=== PATIENT | male | born 1945 | race Caucasian/White ===

== ENCOUNTER 2024-01-21 20:31 | Outpatient (CLI) | payer MEDICARE, OTHER | END 2024-01-21 20:32 | disposition critical access hospital (66) | LOC: EMS 20:31 | DX: S00.81XA Abrasion of other part of head, initial encounter (principal); W18.30XA Fall on same level, unspecified, initial encounter; Y92.092 Bedroom in other non-institutional residence as the place of occurrence of the external cause; Z79.01 Long term (current) use of anticoagulants | CPT/HCPCS: A0425; A0429 ==

== ENCOUNTER 2024-01-21 20:51 | Emergency (ER) | payer MEDICARE, OTHER ==
--- NOTE | 2024-01-21 21:04 | ED Physician Documentation ---
History of Present Illness - Stated complaint Stated Complaint: GLF - Chief complaint Chief Complaint: Trauma Hd/Nk - History obtained from History obtained from: Patient, EMS - Additonal information Additional information: The patient is brought to the emergency department by EMS from home place for chief complaint of head injury. The staff apparently found the patient to have fallen that the patient states he did not really fall entirely. He states he has back pain and sometimes has spasms and that this can sometimes cause him to lose his balance. He states he stumbled but did not really hurt himself and barely grazed his head. He denies any loss of consciousness. He was actually able to get up on his own. He has no complaints and is a DNR/comfort measures. The patient denies any back pain that is new. No neck pain. No neurologic changes. No visual changes. The patient denies any rib pain hip pain or extremity pain. No other complaints at this time. PD PAST MEDICAL HISTORY - Past Medical History Past Medical History: Yes Cardiovascular: Congestive heart failure, Hypertension, Atrial fibrillation Respiratory: Sleep apnea Neuro: Dementia, CVA HEENT: None Musculoskeletal: Other Other Past Medical History: spinal stenosis - Past Surgical History Past Surgical History: Yes - Present Medications Home Medications: Ambulatory Orders Medication Instructions Recorded Confirmed Acetaminophen [Tylenol] 500 mg PO BID 01/21/24 01/21/24 Apixaban [Eliquis] 5 mg PO BID 01/21/24 01/21/24 Bumetanide 2 mg PO DAILY 01/21/24 01/21/24 Levothyroxine [Synthroid] 25 mcg PO QDAC 01/21/24 01/21/24 Naproxen Sodium [Aleve] 220 mg PO BID 01/21/24 01/21/24 Potassium Chloride 20 meq PO BID 01/21/24 01/21/24 QUEtiapine [SEROquel] 25 mg PO TID 01/21/24 01/21/24 Sacubitril/Valsartan [Entresto 24 1 tab PO BID 01/21/24 01/21/24 mg-26 mg Tablet] busPIRone [Buspar] 5 mg PO TID 01/21/24 01/21/24 hydrALAZINE [Apresoline] 25 mg PO TID 01/21/24 01/21/24 hydrOXYzine HCL [Hydroxyzine HCl] 25 mg PO BID 01/21/24 01/21/24 - Allergies Allergies/Adverse Reactions: Allergies Allergy/AdvReac Type Severity Reaction Status Date / Time amlodipine Allergy Unknown Verified 01/21/24 21:01 dexmethylphenidate Allergy Unknown Verified 01/21/24 21:01 iodine Allergy Unknown Verified 01/21/24 21:01 lisinopril Allergy Unknown Verified 01/21/24 21:01 tositumomab Allergy Unknown Verified 01/21/24 21:01 - Social History Does the pt smoke?: No Smoking Status: Never smoker Does the pt drink ETOH?: No Does the pt have substance abuse?: No - Immunizations Immunizations are current?: Yes - POLST Patient has POLST: Yes PD ED PE NORMAL - Vitals Vital signs reviewed: Yes - General General: No acute distress, Well developed/nourished, Other (Alert, conversant, appropriate.) - HEENT HEENT: PERRL, EOMI, Moist mucous membranes, Other (An old abrasion is noted over the left anterior superior scalp but otherwise no contusion, edema, or tenderness, and no other evidence of trauma.) - Cardiac Cardiac: RRR, No murmur - Respiratory Respiratory: Clear bilaterally - Abdomen Abdomen: Normal bowel sounds, Soft, Non tender, Non distended - Derm Derm: Warm and dry - Extremities Extremities: No deformity - Neuro Neuro: Alert and oriented X 3 - Psych Psych: Normal mood, Normal affect Results - Vitals Vitals: Vital Signs - 24 hr 01/21/24 01/21/24 20:54 22:36 Temperature 36.9 C Heart Rate 91 77 Respiratory 15 16 Rate Blood Pressure 130/78 137/71 H O2 Saturation 97 99 Oxygen O2 Source Room air - Rads (name of study) head CT Relevant Findings:: Final report received, See rad report (nad) PD Medical Decision Making - ED course Complexity details: reviewed old records, reviewed results, re-evaluated rick ent, considered differential, d/w patient ED course: The patient was worked up with CT scan of the head. This was negative. The patient's assisted living facility did call and ask if we would be willing to draw the patient's blood, because they have been trying to get him to agree to a blood draw as an outpatient and he keeps refusing. I have communicated to them that I declined to do this, as the patient is his own decision maker and has a clear "DNR comfort only" POLST, And if he does not want to get his blood drawn we are not going to go against his wishes. The patient is stable for discharge home. We discussed the usual indications for follow-up and return. Departure - Departure Disposition: 01 Home, Self Care Clinical Impression: Closed head injury Qualifiers: Encounter type: initial encounter Qualified Code(s): S09.90XA - Unspecified injury of head, initial encounter Fall Qualifiers: Encounter type: initial encounter Qualified Code(s): W19.XXXA - Unspecified fall, initial encounter Condition: Stable Instructions: ED Head Injury Closed Comments: Your CT scan looks good. There is no evidence of injury otherwise. Please follow-up with your primary care physician for further concerns and routine care. Forms: PCP List Discharge Date/Time: 01/21/24 22:59
--- NOTE | 2024-01-21 21:55 | CT Report ---
PROCEDURE: Head WO INDICATIONS: fall/head inj/eliquis TECHNIQUE: Noncontrast 4.5 mm thick angled axial sections acquired from the foramen magnum to the vertex. For r adiation dose reduction, the following was used: automated exposure control, adjustment of mA and/or kV according to patient size. COMPARISON: None. FINDINGS: Image quality: Excellent. CSF spaces: Basal cisterns are patent. No extra-axial fluid collections. Ventricles are prominent. Brain: No midline shift. No intracranial masses or hemorrhage. Area of encephalomalacia at the righ t cerebellum, (04/25). There is periventricular hypodensity consistent with chronic microvascular isch emic disease. Age-related parenchymal loss. Skull and face: Calvarium and visualized facial bones are intact, without suspicious lesions. Sinuses: Visualized sinuses and mastoids are clear. IMPRESSION: No acute intracranial hemorrhage. Encephalomalacia the right cerebellum. This could be the sequelae of prior infarction. Reviewed by: Krzysztof Betts MD on 01/21/2024 9:53 PM PDT Approved by: Krzysztof Betts MD on 01/21/2024 9:53 PM PDT Station ID: [id number]
[2024-01-21 22:43] VITALS: BP 137/71; O2SAT 99
== END 2024-01-21 22:59 | disposition home or self-care (01) ==
LOC: EDBD → ED 20:51 → EDBD 20:51 → ED 22:59
DX: S00.01XA Abrasion of scalp, initial encounter (principal); S09.90XA Unspecified injury of head, initial encounter; W18.39XA Other fall on same level, initial encounter; Y92.099 Unspecified place in other non-institutional residence as the place of occurrence of the external cause; Z66 Do not resuscitate; I50.9 Heart failure, unspecified; I48.91 Unspecified atrial fibrillation; G47.30 Sleep apnea, unspecified; Z86.73 Personal history of transient ischemic attack (TIA), and cerebral infarction without residual deficits; Z79.01 Long term (current) use of anticoagulants; Z79.899 Other long term (current) drug therapy
CPT/HCPCS: 99283; 99284

== ENCOUNTER 2024-01-21 22:54 | Outpatient (CLI) | payer MEDICARE, OTHER | END 2024-01-21 22:55 | disposition home or self-care (01) | LOC: EMS 22:54 | PROVIDERS: ATTEND Emergency Medicine | DX: S00.81XA Abrasion of other part of head, initial encounter (principal); W18.30XA Fall on same level, unspecified, initial encounter; R41.0 Disorientation, unspecified; Z79.01 Long term (current) use of anticoagulants | CPT/HCPCS: A0425; A0428 ==

== ENCOUNTER 2024-01-22 15:19 | Outpatient (CLI) | payer MEDICARE, OTHER | END 2024-01-22 23:59 | disposition critical access hospital (66) | LOC: EMS 15:19 | DX: I48.91 Unspecified atrial fibrillation (principal); R29.6 Repeated falls; I10 Essential (primary) hypertension; R41.0 Disorientation, unspecified | CPT/HCPCS: A0425; A0429 ==

== ENCOUNTER 2024-01-22 15:38 | Emergency (ER) | payer MEDICARE, OTHER ==
--- NOTE | 2024-01-22 16:11 | ED Physician Documentation ---
History of Present Illness - Stated complaint Stated Complaint: GLF - Chief complaint Chief Complaint: General - History obtained from History obtained from: Patient, EMS - Additonal information Additional information: This is a 78-year-old gentleman who presents by ambulance. History is difficult as it was not clear exactly why he came in today. EMS reports that the care facility was worried about his heart. Patient admits to falling out of bed. Does not feel injured. Really more upset that he is here in general. He has no specific complaints. He notes that his lives on [address] and he is in a shelter here. He states that his hates him. She is the listed POA though. He is DNR/DNI and comfort care only. I was able to pull up records from [facility] where he was hospitalized in October. They are summarized as follows: 77-year-old gentleman with nonischemic cardiomyopathy with EF of 35 to 40%, stage IIIa CKD, hypertension, paroxysmal A-fib status post ablations in 2012 and [address] due to high fall risk. He had a CVA in 2011 with significant residual Deficits including aphasia and ataxia, moderate to severe MR status post mitral clip, CAD status post PCI with LAD stent. He was felt to be in heart failure and was diuresed. Discharge summary does note dementia, which is not listed on his list from [facility]. That said he is on Seroquel. He is on numerous cardiac medications as well as including Eliquis. PD PAST MEDICAL HISTORY - Past Medical History Past Medical History: Yes Cardiovascular: Congestive heart failure, Hypertension, Atrial fibrillation Respiratory: Sleep apnea Neuro: Dementia, CVA HEENT: None Musculoskeletal: Other - Past Surgical History Past Surgical History: Yes - Present Medications Home Medications: Ambulatory Orders Medication Instructions Recorded Confirmed Acetaminophen [Tylenol] 500 mg PO BID 01/21/24 01/21/24 Apixaban [Eliquis] 5 mg PO BID 01/21/24 01/21/24 Bumetanide 2 mg PO DAILY 01/21/24 01/21/24 Levothyroxine [Synthroid] 25 mcg PO QDAC 01/21/24 01/21/24 Naproxen Sodium [Aleve] 220 mg PO BID 01/21/24 01/21/24 Potassium Chloride 20 meq PO BID 01/21/24 01/21/24 QUEtiapine [SEROquel] 25 mg PO TID 01/21/24 01/21/24 Sacubitril/Valsartan [Entresto 24 1 tab PO BID 01/21/24 01/21/24 mg-26 mg Tablet] busPIRone [Buspar] 5 mg PO TID 01/21/24 01/21/24 hydrALAZINE [Apresoline] 25 mg PO TID 01/21/24 01/21/24 hydrOXYzine HCL [Hydroxyzine HCl] 25 mg PO BID 01/21/24 01/21/24 - Allergies Allergies/Adverse Reactions: Allergies Allergy/AdvReac Type Severity Reaction Status Date / Time amlodipine Allergy Unknown Verified 01/22/24 15:54 dexmethylphenidate Allergy Unknown Verified 01/22/24 15:54 iodine Allergy Unknown Verified 01/22/24 15:54 lisinopril Allergy Unknown Verified 01/22/24 15:54 tositumomab Allergy Unknown Verified 01/22/24 15:54 - Social History Does the pt smoke?: No Smoking Status: Never smoker Does the pt drink ETOH?: No Does the pt have substance abuse?: No - Immunizations Immunizations are current?: Yes - POLST Patient has POLST: Yes PD ED PE NORMAL - Vitals Vital signs reviewed: Yes - General General: Other (Slow slurred speech with decent memory. He is frustrated being here and also frustrated with regards to his relationship with his .) - HEENT HEENT: PERRL, EOMI - Neck Neck: Supple, no meningeal sign, No bony TTP - Cardiac Cardiac: RRR, No murmur - Respiratory Respiratory: No respiratory distress, Clear bilaterally - Abdomen Abdomen: Non tender - Extremities Extremities: No edema, No calf tenderness / cord - Neuro Neuro: Other (He knows the year but not the month. He may have some dementia.) Eye Opening: Spontaneous Motor: Obeys Commands Verbal: Oriented GCS Score: 15 Results - Vitals Vitals: Vital Signs - 24 hr 01/22/24 15:47 Temperature 36.6 C Heart Rate 77 Respiratory 20 Rate Blood Pressure 150/78 H O2 Saturation 99 Oxygen O2 Source Room air - EKG (time done) 1623 EKG releavant findings:: EKG personally interpreted by author of this note. Relevant findings are: Rate: Rate (enter#) (76) Rhythm: NSR [place]: LAD Intervals: Prolonged DC, Other (ivcd qrds 136msec) Ischemia: Non specific changes Computer interpretation: Agree with computer - Labs Labs: Laboratory Tests 01/22/24 01/22/24 16:07 16:07 WBC 6.7 RBC 3.84 L Hgb 12.3 L Hct 37.0 L MCV 96.4 H MCH 32.0 H MCHC 33.2 RDW 14.4 Plt Count 178 MPV 9.7 Neut # (Auto) 4.9 Lymph # (Auto) 1.2 L [place] # (Auto) 0.5 Eos # (Auto) 0.1 Baso # (Auto) 0.0 Absolute Nucleated RBC 0.00 Nucleated RBC % 0.0 Sodium 141 Potassium 3.4 L Chloride 103 Carbon Dioxide 31 Anion Gap 7.0 BUN 29 H Creatinine 1.3 Estimated GFR (MDRD) 53 L Glucose 126 H Calcium 9.6 Magnesium 1.7 Total Bilirubin 1.6 H AST 24 ALT 16 Alkaline Phosphatase 118 Total Protein 7.2 Albumin 4.0 Globulin 3.2 Albumin/Globulin Ratio 1.3 - Rads (name of study) CT of the head demonstrates right cerebellar encephalomalacia. Chest x- ray, single view was unremarkable. Relevant Findings:: Final report received, EMP independent interpretation of test PD Medical Decision Making - ED course Complexity details: d/w family (I attempted to call the , and called the phone number on the chart. Unfortunately just went through a fax line.) ED course: CBC showing mild macrocytic anemia. CMP grossly unremarkable. 78-year-old gentleman with dementia, anticoagulated fell out of bed. There is no evidence of cardiac decompensation. Departure - Departure Disposition: 01 Home, Self Care Clinical Impression: Fall from bed, Adequate anticoagulation on anticoagulant therapy Condition: Good Record reviewed to determine appropriate education?: Yes Instructions: ED Head Injury Closed Sleep Mon Comments: Hammad was not in atrial fibrillation here. His head CT was unremarkable. I attempted to call his without success, it went to a fax line. Call your doctor to arrange a follow-up appointment, make the next available appointment. In the interim, return anytime if worse or if new symptoms develop. Forms: PCP List
[2024-01-22 16:12] LABS: BASOPHILS % (AUTO) 0.4 %; EOSINOPHILS # (AUTO) 0.1 10^3/uL (0.0-0.7); EOSINOPHILS % (AUTO) 1.2 %; HGB - HEMOGLOBIN 12.3 g/dL (14.0-18.0); LYMPHOCYTES # (AUTO) 1.2 10^3/uL (1.5-3.5); LYMPHOCYTES % (AUTO) 17.9 %; MEAN CORPUSCULAR HGB CONC 33.2 g/dL (32.0-36.0); MEAN CORPUSCULAR VOLUME 96.4 fL (80.0-94.0); MEAN PLATELET VOLUME 9.7 fL (7.4-11.4); MONOCYTES # (AUTO) 0.5 10^3/uL (0.0-1.0); MONOCYTES % (AUTO) 7.9 %; NEUTROPHILS # (AUTO) 4.9 10^3/uL (1.5-6.6); NEUTROPHILS % (AUTO) 72.3 %; PLT - PLATELET COUNT 178 10^3/uL (130-450); RED BLOOD COUNT 3.84 10^6/uL (4.70-6.10); RED CELL DISTRIBUTION WIDTH 14.4 % (12.0-15.0); WHITE BLOOD COUNT 6.7 x10^3/uL (4.8-10.8)
[2024-01-22 16:21] LABS: MAGNESIUM 1.7 mg/dL (1.7-2.3)
[2024-01-22 16:28] LABS: ALBUMIN/GLOBULIN RATIO 1.3 (1.0-2.2); BILIRUBIN,TOTAL 1.6 mg/dL (0.2-1.0); CALCIUM 9.6 mg/dL (8.5-10.3); CREATININE 1.3 mg/dL (0.6-1.3); POTASSIUM 3.4 mmol/L (3.5-4.5); TOTAL PROTEIN 7.2 g/dL (6.4-8.9)
--- NOTE | 2024-01-22 16:59 | XRAY Report ---
PROCEDURE: Chest 1V INDICATIONS: fall TECHNIQUE: One view of the chest was acquired. COMPARISON: None. FINDINGS: Surgical changes and devices: None. Lungs and pleura: No pleural effusions or pneumothorax. Lungs are clear. Mediastinum: Mediastinal contours appear normal. Heart size is enlarged. Bones and chest wall: No suspicious bony lesions. Overlying soft tissues appear unremarkable. IMPRESSION: No acute cardiopulmonary process. Reviewed by: Margie Lay MD on 01/22/2024 4:58 PM PDT Approved by: Margie Lay MD on 01/22/2024 4:58 PM PDT Station ID: [id number]
--- NOTE | 2024-01-22 17:13 | CT Report ---
PROCEDURE: Head WO INDICATIONS: poss head inj TECHNIQUE: Noncontrast 4.5 mm thick angled axial sections acquired from the foramen magnum to the vertex. For r adiation dose reduction, the following was used: automated exposure control, adjustment of mA and/or kV according to patient size. COMPARISON: 01/21/2024 FINDINGS: Image quality: Diagnostic CSF spaces: Basal cisterns are patent. Lateral ventricles are symmetric. Volume: Vascular calcifications. Periventricular white matter disease is commonly seen with chronic m icroangiopathy. Volume loss is present. These findings are moderate. Brain: Similar encephalomalacia in the right cerebellum. No new gross loss of vieira-white differentiat ion. No acute intracranial hematoma. Craniofacial structures: No gross abnormality in the partially visualized craniofacial structures IMPRESSION: No acute intracranial abnormality. Similar right cerebellar encephalomalacia. Reviewed by: Rajiv Eaton MD on 01/22/2024 5:11 PM PDT Approved by: Rajiv Eaton MD on 01/22/2024 5:11 PM PDT Station ID: [id number]
[2024-01-22 17:52] VITALS: BP 131/74; O2SAT 96
== END 2024-01-22 18:20 | disposition home or self-care (01) ==
LOC: EDUNIT# → EDSEX → ED 15:38
DX: Z71.1 Person with feared health complaint in whom no diagnosis is made (principal); W06.XXXA Fall from bed, initial encounter; Y92.092 Bedroom in other non-institutional residence as the place of occurrence of the external cause; F03.90 Unspecified dementia, unspecified severity, without behavioral disturbance, psychotic disturbance, mood disturbance, and anxiety; I13.0 Hypertensive heart and chronic kidney disease with heart failure and stage 1 through stage 4 chronic kidney disease, or unspecified chronic kidney disease; I50.9 Heart failure, unspecified; N18.31 Chronic kidney disease, stage 3a; I48.0 Paroxysmal atrial fibrillation; Z79.01 Long term (current) use of anticoagulants; G47.30 Sleep apnea, unspecified; Z86.73 Personal history of transient ischemic attack (TIA), and cerebral infarction without residual deficits; Z91.81 History of falling; Z66 Do not resuscitate
CPT/HCPCS: 36415; 80053; 83735; 85025; 93005; 99283; 99284

== ENCOUNTER 2024-01-22 18:17 | Outpatient (CLI) | payer MEDICARE, OTHER | END 2024-01-22 23:59 | disposition home or self-care (01) | LOC: EMS 18:17 | PROVIDERS: ATTEND Emergency Medicine | DX: F03.90 Unspecified dementia, unspecified severity, without behavioral disturbance, psychotic disturbance, mood disturbance, and anxiety (principal); R41.0 Disorientation, unspecified | CPT/HCPCS: A0425; A0428 ==

== ENCOUNTER 2024-01-25 09:39 | Outpatient (CLI) | payer MEDICARE, OTHER | END 2024-01-25 09:40 | disposition EMS.NT | LOC: EMS 09:39 | DX: S00.01XA Abrasion of scalp, initial encounter (principal); W06.XXXA Fall from bed, initial encounter; Y92.092 Bedroom in other non-institutional residence as the place of occurrence of the external cause ==

== ENCOUNTER 2024-02-27 13:51 | Outpatient (CLI) | payer MEDICARE, OTHER | END 2024-02-27 23:59 | disposition critical access hospital (66) | LOC: EMS 13:51 | DX: R79.89 Other specified abnormal findings of blood chemistry (principal); G30.9 Alzheimer's disease, unspecified; F02.80 Dementia in other diseases classified elsewhere, unspecified severity, without behavioral disturbance, psychotic disturbance, mood disturbance, and anxiety | CPT/HCPCS: A0425; A0429 ==

== ENCOUNTER 2024-02-27 14:10 | Emergency (ER) | payer MEDICARE, OTHER ==
--- NOTE | 2024-02-27 14:29 | ED Physician Documentation ---
<Vin Arizmendi - Last Filed: 02/27/24 14:29> History of Present Illness - Stated complaint Stated Complaint: ABNORMAL LABS PD PAST MEDICAL HISTORY - Past Medical History Cardiovascular: Congestive heart failure, Hypertension, Atrial fibrillation Respiratory: Sleep apnea Neuro: Dementia, CVA HEENT: None Musculoskeletal: Other - Past Surgical History Past Surgical History: Yes - Present Medications Home Medications: Ambulatory Orders Medication Instructions Recorded Confirmed Acetaminophen [Tylenol] 500 mg PO BID 01/21/24 01/21/24 Apixaban [Eliquis] 5 mg PO BID 01/21/24 01/21/24 Bumetanide 2 mg PO DAILY 01/21/24 01/21/24 Levothyroxine [Synthroid] 25 mcg PO QDAC 01/21/24 01/21/24 Naproxen Sodium [Aleve] 220 mg PO BID 01/21/24 01/21/24 Potassium Chloride 20 meq PO BID 01/21/24 01/21/24 QUEtiapine [SEROquel] 25 mg PO TID 01/21/24 01/21/24 Sacubitril/Valsartan [Entresto 24 1 tab PO BID 01/21/24 01/21/24 mg-26 mg Tablet] busPIRone [Buspar] 5 mg PO TID 01/21/24 01/21/24 hydrALAZINE [Apresoline] 25 mg PO TID 01/21/24 01/21/24 hydrOXYzine HCL [Hydroxyzine HCl] 25 mg PO BID 01/21/24 01/21/24 - Allergies Allergies/Adverse Reactions: Allergies Allergy/AdvReac Type Severity Reaction Status Date / Time amlodipine Allergy Unknown Verified 01/22/24 15:54 dexmethylphenidate Allergy Unknown Verified 01/22/24 15:54 iodine Allergy Unknown Verified 01/22/24 15:54 lisinopril Allergy Unknown Verified 01/22/24 15:54 tositumomab Allergy Unknown Verified 01/22/24 15:54 - Social History Does the pt smoke?: No Smoking Status: Never smoker Does the pt drink ETOH?: No Does the pt have substance abuse?: No - Immunizations Immunizations are current?: Yes - POLST Patient has POLST: Yes <Tristen Schwarz - Last Filed: 02/27/24 14:31> History of Present Illness - History obtained from History obtained from: Patient, EMS Results - Vitals Vitals: Oxygen O2 Source Room air
[2024-02-27 15:06] LABS: BASOPHILS % (AUTO) 0.3 %; EOSINOPHILS # (AUTO) 0.2 10^3/uL (0.0-0.7); EOSINOPHILS % (AUTO) 2.6 %; HCT - HEMATOCRIT 36.2 % (42.0-52.0); LYMPHOCYTES # (AUTO) 1.4 10^3/uL (1.5-3.5); LYMPHOCYTES % (AUTO) 22.9 %; MEAN CORPUSCULAR HEMOGLOBIN 32.3 pg (27.0-31.0); MEAN CORPUSCULAR HGB CONC 33.1 g/dL (32.0-36.0); MEAN CORPUSCULAR VOLUME 97.3 fL (80.0-94.0); MONOCYTES # (AUTO) 0.5 10^3/uL (0.0-1.0); MONOCYTES % (AUTO) 7.7 %; NEUTROPHILS # (AUTO) 4.1 10^3/uL (1.5-6.6); NEUTROPHILS % (AUTO) 66.2 %; PLT - PLATELET COUNT 168 10^3/uL (130-450); RED BLOOD COUNT 3.72 10^6/uL (4.70-6.10); RED CELL DISTRIBUTION WIDTH 12.5 % (12.0-15.0); WHITE BLOOD COUNT 6.2 x10^3/uL (4.8-10.8)
[2024-02-27 15:34] LABS: ALBUMIN 3.9 g/dL (3.2-5.5); ALBUMIN/GLOBULIN RATIO 1.3 (1.0-2.2); BILIRUBIN,TOTAL 0.7 mg/dL (0.2-1.0); CALCIUM 9.7 mg/dL (8.5-10.3); CREATININE 1.2 mg/dL (0.6-1.3); MAGNESIUM 1.7 mg/dL (1.7-2.3); PHOSPHORUS 3.3 mg/dL (2.5-5.0); POTASSIUM 3.9 mmol/L (3.5-4.5); TOTAL PROTEIN 6.8 g/dL (6.4-8.9)
[2024-02-27 15:57] VITALS: O2SAT 97
--- NOTE | 2024-02-27 16:02 | ED Physician Documentation ---
History of Present Illness - Stated complaint Stated Complaint: ABNORMAL LABS - Chief complaint Chief Complaint: General - History obtained from History obtained from: Patient, EMS - History of Present Illness Severity Comments: The patient is here to get blood drawn. He had refused it at [facility]. Quality: The patient is on diuretics and potassium supplements. There is c oncern for checking his potassium level as well as electrolytes. He had declined IV or correction blood draw at [facility]. No other complaint per se. His primary care directed the patient to be brought to the ER for testing. Here the patient does consent to blood draw. PD PAST MEDICAL HISTORY - Past Medical History Past Medical History: Yes Cardiovascular: Congestive heart failure, Hypertension, Atrial fibrillation Respiratory: Sleep apnea Neuro: Dementia, CVA HEENT: None Musculoskeletal: Other - Past Surgical History Past Surgical History: Yes - Present Medications Home Medications: Ambulatory Orders Medication Instructions Recorded Confirmed Acetaminophen [Tylenol] 500 mg PO BID 01/21/24 01/21/24 Apixaban [Eliquis] 5 mg PO BID 01/21/24 01/21/24 Bumetanide 2 mg PO DAILY 01/21/24 01/21/24 Levothyroxine [Synthroid] 25 mcg PO QDAC 01/21/24 01/21/24 Naproxen Sodium [Aleve] 220 mg PO BID 01/21/24 01/21/24 Potassium Chloride 20 meq PO BID 01/21/24 01/21/24 QUEtiapine [SEROquel] 25 mg PO TID 01/21/24 01/21/24 Sacubitril/Valsartan [Entresto 24 1 tab PO BID 01/21/24 01/21/24 mg-26 mg Tablet] busPIRone [Buspar] 5 mg PO TID 01/21/24 01/21/24 hydrALAZINE [Apresoline] 25 mg PO TID 01/21/24 01/21/24 hydrOXYzine HCL [Hydroxyzine HCl] 25 mg PO BID 01/21/24 01/21/24 - Allergies Allergies/Adverse Reactions: Allergies Allergy/AdvReac Type Severity Reaction Status Date / Time amlodipine Allergy Unknown Verified 02/27/24 15:17 dexmethylphenidate Allergy Unknown Verified 02/27/24 15:17 iodine Allergy Unknown Verified 02/27/24 15:17 lisinopril Allergy Unknown Verified 02/27/24 15:17 tositumomab Allergy Unknown Verified 02/27/24 15:17 - Social History Does the pt smoke?: No Smoking Status: Never smoker Does the pt drink ETOH?: No Does the pt have substance abuse?: No - Immunizations Immunizations are current?: Yes - POLST Patient has POLST: Yes Results - Vitals Vitals: Vital Signs - 24 hr 02/27/24 02/27/24 02/27/24 14:31 15:56 17:07 Temperature 36.4 C L Heart Rate 67 90 61 Respiratory 14 18 20 Rate Blood Pressure 133/83 H 161/95 H 160/72 H O2 Saturation 98 97 97 Oxygen O2 Source Room air - Labs Labs: Laboratory Tests 02/27/24 02/27/24 14:44 14:44 WBC 6.2 RBC 3.72 L Hgb 12.0 L Hct 36.2 L MCV 97.3 H MCH 32.3 H MCHC 33.1 RDW 12.5 Plt Count 168 MPV 10.0 Neut # (Auto) 4.1 Lymph # (Auto) 1.4 L [place] # (Auto) 0.5 Eos # (Auto) 0.2 Baso # (Auto) 0.0 Absolute Nucleated RBC 0.00 Nucleated RBC % 0.0 Sodium 139 Potassium 3.9 Chloride 102 Carbon Dioxide 33 H Anion Gap 4.0 L BUN 31 H Creatinine 1.2 Estimated GFR (MDRD) 58 L Glucose 117 H Calcium 9.7 Phosphorus 3.3 Magnesium 1.7 Total Bilirubin 0.7 AST 26 ALT 24 Alkaline Phosphatase 115 Total Protein 6.8 Albumin 3.9 Globulin 2.9 Albumin/Globulin Ratio 1.3 Lipase 16 PD Medical Decision Making - ED course Complexity details: reviewed results ED course: The patient was here for blood draw of chemistry panel. Apparently had had low potassium checked recently. No particular complaints acutely. He does have some rhythmic motion disorder that is been increasing. He is concerned about Osceola's disease. He states there are family members, cousins with it. He asked for testing since he is here anyway. I did review with the lab and referenced up-to-date and there is a genetic marker test which is the suggested first-line testing evaluation. I ordered that. He will be assigned out of course. Otherwise his chemistry panel shows a normal potassium at 3.9. Calcium 9.7. Magnesium 1.7. Renal function is good with a creatinine of 1.2 and a GFR of 52 which appears close to baseline for him. No acute abnormality noted. The patient will be returned to memory care. Continue current medicines and hydration. Departure - Departure Disposition: 01 Home, Self Care Clinical Impression: residential current use of diuretic, Movement disorder Condition: Stable Record reviewed to determine appropriate education?: Yes Comments: Your electrolytes are good with a potassium of 3.9 and a calcium 9.7 magnesium 1.7. Kidney function shows a creatinine 1.2 with a GFR of 52. These are all in reasonable range. Continue with your current medications and hydration. You had requested a test for Osceola's disease. This is a send out genetic testing and will not result for likely several days to week or so. Have your primary care look up the results to follow that. Forms: PCP List Discharge Date/Time: 02/27/24 17:09
[2024-02-27 17:15] VITALS: BP 160/72
== END 2024-02-27 17:09 | disposition home or self-care (01) ==
LOC: EDUNIT# → ED 14:10
DX: G25.9 Extrapyramidal and movement disorder, unspecified (principal); I11.0 Hypertensive heart disease with heart failure; I50.9 Heart failure, unspecified; I48.91 Unspecified atrial fibrillation; G47.30 Sleep apnea, unspecified; F03.90 Unspecified dementia, unspecified severity, without behavioral disturbance, psychotic disturbance, mood disturbance, and anxiety; Z79.01 Long term (current) use of anticoagulants; Z79.899 Other long term (current) drug therapy
CPT/HCPCS: 36415; 80053; 81599; 83690; 83735; 84100; 85025; 99283; 99284

== ENCOUNTER 2024-02-27 17:04 | Outpatient (CLI) | payer MEDICARE, OTHER | END 2024-02-27 23:59 | disposition home or self-care (01) | LOC: EMS 17:04 | PROVIDERS: ATTEND Emergency Medicine | DX: R41.0 Disorientation, unspecified (principal); R26.89 Other abnormalities of gait and mobility | CPT/HCPCS: A0425; A0428 ==